=== PATIENT | female | born 1995 | race Caucasian/White ===

== ENCOUNTER 2017-05-05 19:51 | Emergency (ER) | payer SELFPAY ==
[~2017-05-05] VITALS: Ht 157.5 cm; Wt 54.0 kg
[2017-05-05] MEDS ORDERED: ALPRAZOLAM 0.25 MG TABLET PO ONE (23:00)
[2017-05-05 23:25] LABS: BASOPHILS % 0.4 % (0.0-2.0); EOSINOPHILS % 0.1 % (0.0-5.0); HEMATOCRIT. 43.3 % (36.0-48.0); HEMOGLOBIN. 14.5 g/dL (12.0-16.0); LYMPHOCYTES % 20.4 % (20.0-50.0); MEAN CORPUSCULAR HEMOGLOBIN 28.4 pg (28.0-32.0); MEAN PLATELET VOLUME 8.1 fl (7.4-10.4); MONOCYTES % 7.9 % (2.0-8.0); NEUTROPHILS % 71.2 % (40.0-76.0); PLATELET 300 x1000/uL (130-400); RED BLOOD CELL COUNT 5.09 mill/uL (4.2-5.4)
[2017-05-05 23:31] LABS: CHLORIDE 105 mEq/L (98-107)
[2017-05-05 23:34] LABS: CARBON DIOXIDE 23 mEq/L (21-32)
[2017-05-06 00:40] LABS: UCG SCREEN NEGATIVE
[2017-05-06 03:52] VITALS: BP 111/67
== END 2017-05-06 03:55 | disposition home or self-care (01) ==
LOC: ER 21:00
DX: F45.8 Other somatoform disorders (principal); F32.9 Major depressive disorder, single episode, unspecified; F41.0 Panic disorder [episodic paroxysmal anxiety]
CPT/HCPCS: 36415; 71046; 80048; 81025; 85025; 85379; 93005; 99285; Z7610

== ENCOUNTER 2017-06-27 20:38 | Emergency (ER) | payer MEDICAID ==
[~2017-06-27] VITALS: Ht 157.5 cm; Wt 53.0 kg
[2017-06-27] MEDS ORDERED: BACITRACIN ZINC OINT UDPKT TOP ONE (21:30)
[2017-06-27] MEDS ORDERED: ACETAMINOPHEN 325MG TABLET PO ONE (21:30)
[2017-06-28 18:45] VITALS: BP 120/59
== END 2017-06-28 19:24 | disposition home or self-care (01) ==
LOC: ER 21:30
DX: O26.891 Other specified pregnancy related conditions, first trimester (principal); S21.259A Open bite of unspecified back wall of thorax without penetration into thoracic cavity, initial encounter; S31.050A Open bite of lower back and pelvis without penetration into retroperitoneum, initial encounter; R10.2 Pelvic and perineal pain; F41.9 Anxiety disorder, unspecified; F32.9 Major depressive disorder, single episode, unspecified; Z3A.01 Less than 8 weeks gestation of pregnancy; Y04.1XXA Assault by human bite, initial encounter; Y92.018 Other place in single-family (private) house as the place of occurrence of the external cause
CPT/HCPCS: 76801; 99284

== ENCOUNTER 2018-07-01 19:13 | Emergency (ER) | payer MEDICAID ==
[~2018-07-01] VITALS: Ht 157.5 cm; Wt 65.2 kg
[2018-07-01] MEDS ORDERED: CYCLOBENZAPRINE 10MG TABLET PO ONE (23:15)
[2018-07-01] MEDS ORDERED: ACETAMINOPHEN 325MG TABLET PO ONE (23:15)
[2018-07-02 01:50] VITALS: BP 100/70
== END 2018-07-02 01:52 | disposition home or self-care (01) ==
LOC: ER 19:13
DX: S16.1XXA Strain of muscle, fascia and tendon at neck level, initial encounter (principal); R51 Headache; R07.89 Other chest pain; F41.9 Anxiety disorder, unspecified; F32.9 Major depressive disorder, single episode, unspecified; Y04.0XXA Assault by unarmed brawl or fight, initial encounter; Y93.89 Activity, other specified; Y92.89 Other specified places as the place of occurrence of the external cause; Y99.8 Other external cause status
CPT/HCPCS: 71045; 99283